=== PATIENT | female | born 1945 | race Caucasian/White ===

== ENCOUNTER 2022-04-23 09:12 | Day surgery (SDC) | payer OTHER ==
[~2022-04-23 09:12] MED LIST: ALENDRONATE SOD70 MG PO; ATORVASTATIN CA40 MG PO; ENALAPRIL MALEA20 MG PO; GABAPENTIN800 M1 PO; GLUMETZA500 MG PO; OXYCODONE W/APA1 TAB; PANTOPRAZOLE SO40 MG PO
== END 2022-04-23 18:25 | disposition home or self-care (01) ==
LOC: CIR.AMB 09:12
PROVIDERS: ATTEND Obstetrics & Gynecology
DX: L82.1 Other seborrheic keratosis (principal); Z88.6 Allergy status to analgesic agent; Z88.8 Allergy status to other drugs, medicaments and biological substances; I10 Essential (primary) hypertension; E78.5 Hyperlipidemia, unspecified; Z87.891 Personal history of nicotine dependence; M19.90 Unspecified osteoarthritis, unspecified site; Z20.822 Contact with and (suspected) exposure to COVID-19